=== PATIENT | male | born 1985 | race Caucasian/White ===

== ENCOUNTER 2017-05-15 23:00 | Emergency (ER) | payer SELFPAY ==
[~2017-05-15] VITALS: Ht 177.8 cm; Wt 75.2 kg
[2017-05-15 23:02] VITALS: BP 134/77; TEMP 36.9; Ht 177.8 cm; Wt 75.2 kg
[2017-05-15] MEDS ORDERED: XYLOCAINE 1%/SOD BICARB 20 ML VIAL INFIL STA (23:12)
[2017-05-15] MEDS ORDERED: DIPHTHERIA/TETANUS/PERTUSSIS 0.5 ML SYR/VIAL IM. ONE (23:15)
[2017-05-16] MEDS ORDERED: CEPHALEXIN 500MG HOME PACK 1 EA BTL PO STA (00:21)
[2017-05-16] MEDS ORDERED: CEPH500C PO (00:25)
--- NOTE | 2017-05-16 00:26 | EMERGENCY ROOM VISIT NOTE ---
History First contact with patient: 23:05 Chief Complaint: LACERATION/CUT (SUT/DERMABOND) Stated Complaint: CUT ON WRIST Nursing Triage Summary: pt reports " I cut my L wrist with knife while cutting wood" reports this was an accident denies SI or HI History of Present Illness The patient is a 31 year old male who presents to the Emergency Room via private vehicle with complaints of "cut on wrist". The patient states that earlier today, approximately 0.5 hours prior to arrival he was in [place] around [place], attempted to cut a piece of wood with a large knife when he accidentally struck the dorsal aspect of his left distal forearm. He states that there was a lot of bleeding, and he rates the pain as a 6/10. He is right- handed. He does not believe his tetanus is up-to-date. He denies any numbness or tingling in the distal extremity. Review of Systems A complete 6-point Review of Systems was discussed with the patient, with pertinent positives and negatives listed in the History of Present Illness. All remaining Review of Systems questions can be considered negative unless otherwise specified. Past Medical/Surgical History No pertinent. Family History No pertinent. Social History Smoking Status: Never Smoker Patient lives locally. Current/Historical Medications Scheduled Cephalexin Monohydrate (Keflex), 500 MG PO TID Physical Exam Vital Signs Date Time Temp Pulse Resp B/P (MAP) Pulse Ox O2 Delivery O2 Flow Rate FiO2 05/16/17 00:40 92 18 98 05/15/17 23:02 36.9 102 18 134/77 98 Room Air Physical Exam VITAL SIGNS - Vital signs and nursing notes were reviewed. Stable. GENERAL -31-year-old male appearing his stated age who is in no acute distress. Communicates well with provider and answers questions appropriately. SKIN - There is a 3 cm long laceration noted on the dorsal aspect of the left distal wrist. The edges gape apart with traction. No foreign bodies appreciated. Upon further examination there are no deep structures including vessel,or bony structures appreciated. There are however, exposed tendons and it appears to be a laceration to the tendon sheath and a small superficial laceration to the tendon. There is no active bleeding noted. MUSCULOSKELETAL - there is full flexion and extension of the wrist, and distal extremity of the left upper extremity. No evidence of complete tendon laceration. NEUROLOGIC -she is neurovascularly intact in left upper extremity. VASCULAR - Capillary refill was brisk. Medical Decision & Procedures Medications Administered Medications (Trade) Dose Ordered Sig/Vicente Route Start Time Stop Time Status Last Admin Dose Admin Diphtheria/ Pertussis/Tetanus Vacc (Adacel Inj) 0.5 ml ONCE ONCE IM. 05/15/17 23:15 05/15/17 23:16 DC 05/15/17 23:33 0.5 ML Cephalexin Monohydrate (Keflex 500MG Home Pack) 1 homepack NOW STAT PO 05/16/17 00:21 05/16/17 00:22 DC 05/16/17 00:34 1 HOMEPACK Medical Decision Patient was seen and evaluated by myself. Due to the degree of involvement, I did discuss the case with on-call orthopedic surgeon, Dr. Salvador at 11:28 PM. He recommended thorough washout, antibiotics, and a soft dressing no splint. Risks and benefits of performing primary wound closure versus no repair were discussed with the patient who verbalizes understanding. Verbal consent was obtained prior to performing the procedure. 4 cc of 1% buffered lidocaine with epinephrine was used to anesthetize the 3 cm wrist laceration. The wound was cleansed and prepped in the typical sterile fashion utilizing normal saline and Betadine. The wound was sterilely draped. Once proper anesthetization was established, the wound was further examined and demonstrated small superficial laceration to the extensor tendon. The wound was copiously irrigated with normal saline and Betadine. The wound was closed using one simple, 4-0 Vicryl suture as well as 5 simple, 4-0 nylon sutures with the wound edges being well approximated. Patient tolerated the procedure well. No complications were met. The wound was cleansed and dressed with a Bacitracin dressing. Patient received their Adacel vaccination. Patient educated on worrisome symptoms for return visit to the Emergency Department. He is to follow-up with orthopedics. He'll be given Keflex as a home pack with the remainder sent to the pharmacy for infection prophylaxis. Patient discharged to home in good condition. In evaluation treatment this patient following differential diagnoses were entertained: Laceration, tendon laceration, among others. I initially had ordered a wrist x-ray however after better affecting the wound do not believe that this is appropriate therefore canceled this request. Impression Primary Impression: Left dorsal wrist laceration with tendon involvement. Departure Information Dispostion Home / Self-Care Condition GOOD Prescriptions Cephalexin Monohydrate (Keflex) 500 Mg Cap 500 MG PO TID for 6 Days, #18 CAP Prov: Johan Soto PA-C 05/16/17 Referrals No Doctor, Assigned (PCP) Jaciel Salvador D.O. Patient Instructions My [facility] Additional Instructions You have received 5 sutures on your wrist. These sutures are NOT dissolvable and WILL need to be removed by a health care provider in 12 days. You can return to the Emergency Department or contact your Primary Care Provider to have the sutures removed. You've been prescribed Keflex. This is an antibiotic to be taken as 1 tablet every 8 hours for 7 days. The remainder is sent to your pharmacy. Please follow-up with orthopedics. Number has been provided. Please call the first and Wednesday morning. Please keep the area covered as we discussed. Proper wound care is essential for adequate wound healing and infection prevention. You can shower and clean the wound with soap and water. Do not scour over the wound, pat dry with a towel. Do not submerse the wound (i.e. bathe or dish wash) until the sutures have been removed. You can use an antibiotic ointment with a dressing over the wound for the next 3-4 days. After this time you may leave the wound dry and open to the air. If crust develops over the wound you can use a Q-tip to apply a 1:1 peroxide:water solution to clean the wound. Look for signs of infection of the wound including: increased pain, swelling, foul discharge, streaking, or increased temperature. If any of these are noticed you should return to the Emergency Department for further assessment and treatment. As with any laceration you may have received nerve damage to the surrounding tissues. This damage may or may not be permanent. You should keep the area covered with sunscreen for the first 6 months to 1 year when at risk for exposure to help minimize scarring. You can also use scar reducing creams or Vitamin E oil to help minimize scarring. For pain control, you can use the following [id number] medicines (if >12 yo): - Regular strength (325mg/tab) Tylenol (acetaminophen) 2 tabs every 4-6 hours as needed. Do not exceed 12 tablets in a 24 hour period. Avoid taking more than 3 grams (3000 mg) of Tylenol per day. This includes any other sources of acetaminophen you may take on a regular basis. - Regular strength (200 mg/tab) Advil (ibuprofen) 1-2 tabs every 4-6 hours as needed. Do not exceed a dose of 3200 mg per day. Return to the emergency department if your symptoms worsen despite treatment course outlined above.
[2017-05-16 00:40] VITALS: PULSE 92; O2SAT 98
== END 2017-05-16 00:41 | disposition home or self-care (01) ==
LOC: C.EDB 23:02 → C.EDA 05-16 00:41
DX: S66.922A Laceration of unspecified muscle, fascia and tendon at wrist and hand level, left hand, initial encounter (principal); W26.0XXA Contact with knife, initial encounter; Z23 Encounter for immunization